=== PATIENT | male | born 1995 | race Caucasian/White ===

== ENCOUNTER 2017-10-16 17:18 | Inpatient (IN) | payer BC, OTHER ==
[~2017-10-16] VITALS: Ht 175.3 cm; Wt 63.5 kg
--- NOTE | 2017-10-16 18:30 | NUR ---
PRE-ADMISSION NOTE Received pt in intake. Pt is flushed and has a disheveled appearance, with a highly labile mood. Presents redness of the eyes, speaks very loudly, hyperactive and fidgety, has racing thoughts, anxiety, agitation, diaphoresis, tremulous, with constant movement of the body and inability to stay still. Pt was upset about not being unable to use his vape on unit and was trying to persuade staff. Pt is the primary source of info. Pt states NKA and no medical hx. Reports psych Hx of anxiety, depression, and bipolar. Pt states he has "anger issues." Pt reports having a hx of SZ, pt stated, "it happened during a blackout from taking benzos." Initial VS are BP: 125/66, HR: 102, RR: 20, O2sat: 96%. SUBSTANCE USE HX: 1. Heroin 0.75 mg daily by inhalation x 3 days. Last use was yesterday 10/15/17 at 0000. First used at age 19. 2. Meth 1.75 mg daily by inhalation/insufflation x 4 days. Last use was yesterday 10/15/17 at 0000. Firsrt used at age 14. 3. Suboxone 8 mg daily x 3 months. Last used today 10/16/17 at 1300 4 mg. Pt stated he did not use while on heroin.
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
[2017-10-16] MEDS ORDERED: ACETAMINOPHEN 325 MG TABLET PO PRN (19:00)
[2017-10-16] MEDS ORDERED: diphenhydrAMINE 50 MG CAPSULE PO PRN (19:00)
[2017-10-16] MEDS ORDERED: BUPRENORPHINE HCL 2 MG TAB.SUBL SL PRN (19:00)
[2017-10-16] MEDS ORDERED: ONDANSETRON ODT 4 MG TAB.RAPDIS SL PRN (19:00)
[2017-10-16] MEDS ORDERED: METHOCARBAMOL 750 MG TABLET PO PRN (19:00)
[2017-10-16] MEDS ORDERED: MIRALAX 17 GM POWD.PACK PO PRN (19:00)
[2017-10-16] MEDS ORDERED: LORAZEPAM 1 MG TABLET PO PRN (19:00)
[2017-10-16] MEDS ORDERED: LOPERAMIDE HCL 2 MG CAPSULE PO PRN ×2 (19:00)
[2017-10-16] MEDS ORDERED: MAGNESIUM HYDROXIDE 30 ML LIQUID UDC PO PRN (19:00)
[2017-10-16] MEDS ORDERED: IBUPROFEN 600 MG TABLET PO PRN (19:00)
[2017-10-16] MEDS ORDERED: 3 DAY TAPER BUPRENORPHINE -SERENITY PROTOCOL SL PRN (19:00)
[2017-10-16] MEDS ORDERED: DICYCLOMINE HCL 20 MG TABLET PO PRN (19:00)
[2017-10-16] MEDS ORDERED: ONDANSETRON 4 MG/2 ML VIAL IM PRN (19:00)
[2017-10-16] MEDS ORDERED: HYDROXYZINE PAMOATE 25 MG CAPSULE PO PRN (19:00)
[2017-10-16] MEDS ORDERED: CLONIDINE HCL 0.1 MG TABLET PO PRN (19:00)
[2017-10-16] MEDS ORDERED: MAG HYDROX/AL HYDROX/SIMETH 30 ML LIQUID UDC PO PRN (19:00)
--- NOTE | 2017-10-16 19:00 | NUR ---
MRSA SWAB, EKG, AND UDS REFUSED Pt refused ordered MRSA swab, EKG, and UDS. Pt stated, "You'll get your pee in the morning." Charge nurse was made aware of the situation. Safety measures in place. Call light within reach. Will continue to monitor.
[2017-10-16 19:07] LABS: BASOPHILS % (AUTO) 0.3 % (0.0-2.0); EOSINOPHILS # (AUTO) 0.2 K/uL (0.0-0.7); EOSINOPHILS % (AUTO) 1.4 % (0.0-7.0); HEMATOCRIT 47.8 % (36.7-47.1); HEMOGLOBIN 16.7 g/dL (12.5-16.3); LYMPHOCYTES # (AUTO) 4.1 K/uL (20.0-40.0); LYMPHOCYTES % (AUTO) 29.1 % (20.5-51.5); MEAN CORPUSCULAR HEMOGLOBIN 30.3 uug (23.8-33.4); MEAN CORPUSCULAR HGB CONC 35 g/dL (32.5-36.3); MEAN CORPUSCULAR VOLUME 86.7 fL (73.0-96.2); MONOCYTES # (AUTO) 1.4 K/uL (2.0-10.0); MONOCYTES % (AUTO) 9.8 % (0.0-11.0); NEUTROPHILS # (AUTO) 8.4 K/uL (1.8-8.9); NEUTROPHILS % (AUTO) 59.4 % (38.5-71.5); PLATELET COUNT (AUTO) 243 K/uL (152-348); RED BLOOD CELL COUNT(AUTO) 5.51 MIL/uL (4.06-5.63); WHITE BLOOD COUNT (AUTO) 14.1 K/uL (3.6-10.2)
[2017-10-16 19:35] LABS: ALANINE AMINOTRANSFERASE 113 U/L (16-63); ALKALINE PHOSPHATASE 81 U/L (50-136); ASPARTATE AMINOTRANSFERASE 152 U/L (15-37); BILIRUBIN,TOTAL 1.2 mg/dL (0.2-1.0); CARBON DIOXIDE 27 mmol/L (21-32); CHLORIDE 97 mmol/L (98-107); CREATININE 2.2 mg/dL (0.6-1.3); GLUCOSE 112 mg/dL (74-106); MAGNESIUM 2.5 mg/dL (1.8-2.4); POTASSIUM 4.2 mmol/L (3.5-5.1); TOTAL PROTEIN, SERUM 8.6 g/dL (6.4-8.2); UREA NITROGEN, BLOOD 47 mg/dL (7-18)
[2017-10-16 19:36] LABS: ETHANOL < 3 MG/DL (0-0)
[2017-10-16 20:00] VITALS: BP 125/66
--- NOTE | 2017-10-16 20:00 | NUR ---
COWS 11 Pt presents with anxiety, flushed skin, anxiety, agitation, restlessness, racing thoughts, and is fidgety. Pt is also easily distracted and impulsive.
[2017-10-17] VITALS: BP_SYST 109; BP_SYST 125; BP_DIAS 66; BP_DIAS 71
--- NOTE | 2017-10-17 | NUR ---
COWS 12 Pt presents with generalized body aches, anxiety, flushed skin, anxiety, agitation, restlessness, racing thoughts, and is fidgety.
--- NOTE | 2017-10-17 00:42 | NUR ---
PRN MOTRIN ADMINISTRATION Pt C/C of pain in his lower legs 10/05. Motrin 600mg was administered. Safety measures in place. Call light within reach. Will continue to monitor.
--- NOTE | 2017-10-17 01:42 | NUR ---
PRN MOTRIN REASSESSMENT Pt found in chair was eyes close, respirations even and unlabored. Medication noted effective. Safety measures in place. Call light within reach. Will continue to monitor.
--- NOTE | 2017-10-17 04:00 | NUR ---
WERO DEFERRED V/S REFUSED Pt was found in bed with eyes closed. Pt refused V/S and COWS assessment was unable to be carried out per order. Safety measures in place. Call light within reach. Will continue to monitor. Addendum: 10/17/17 at 0442 by PHIL TINOCO RN COWS DEFERRED*
--- NOTE | 2017-10-17 07:12 | NUR ---
END OF SHIFT Pt is a 21 y/o male admitted on 10/16/17 for opiate withdrawal. Pt also stated using meth and marijuana. Pt will start a 3 day Subutex taper today. Pt presented with anxiety, flushed skin, anxiety, agitation, restlessness, racing thoughts, and is fidgety. Pt is also easily distracted and impulsive. PRN Motrin was administered during the game artist. Pt has refused the initial UDS, EKG, and MRSA nasal swab. Last COWS 12. Pt slept 4 hours. Intake 828 ml, voided 0, stool 1. Pt's needs have been met. Endorsed to day shift nurse.
--- NOTE | 2017-10-17 07:20 | NUR ---
Start of Shift Note Pt. is a 21 y/o male newly admitted for the medically managed withdrawal from opiates (Heroin, and Suboxone). Pt. was also using meth daily concurrently with his opiate abuse. Pt. is scheduled to start a 3 day Subutex taper this morning. Endorse from previous shift pt. presented with anxiety, flushed skin, agitation, poor impulse control, restlessness and irritability. Pt. was given PRN Motrin during previous shift. Pt. refused UDS, EKG, and MRSA swab during time of admission. Last COW's of 12. Received pt. in room. Pt. in bed with eyes closed. Pt. presents as disheveled with linens falling off the bed and a cluttered personal space. Pt. arousable to touch but once woken up pt. became irritable. Pt. stated " You, guys are so un professional, why are you waking me up." Pt. educated on the need for a urine sample and a MRSA swab. Pt. grabbed the linens around him and covered himself including his head and refused to response. Pt. refused V/S at this time. Educated pt. on treatment plan and medication regiment. Pt. still refused to respond. Safety measures in place. Will continue to monitor pt.'s behavior for safety.
--- NOTE | 2017-10-17 08:00 | NUR ---
COWS Assessment COW's of 12. Pt. laying in bed and reports stomach cramps, and body aches. Pt. presents with flushed facial skin, restlessness and tangental thought patterns. upon approach pt. is irritable, paranoid, and labile. Pt. prompted to sign nursing education packets (Pt. did not sign during admission) to which pt. responded "I'm not signing shit, this is all a scam, you're charging my insurance hundreds of dollars if I sign that. I don't want to do anything leave me the fuck alone." Pt. educated as to the contents of the documents being signed and assured him they where educational in nature. Pt. still refused to sign. Pt. was prompted to provide a urine sample which he did not provide during admission pt. responded by saying "I peed in the middle of the night, I don't have to pee anymore please just leave me fuck alone. It's not my fault you guys didn't give me a cup at night." Educated pt. as to the necessity of a urine sample. Prompted pt. to allow this tag writer to swab his nares to check for MRSA because the pt. had recently been incarcerated. Pt. educated as the reasoning behind the swab and why he met criteria as to be swabbed. Pt. responded with " Fuck that, that's just another way for you guys get money, you guys are just trying to get money from my insurance, this is all just one big scam." Pt. educated once more, but still refused to comply with urine sample, MRSA swab and education packet signatures. aware. Will continue to monitor pt. for safety.
--- NOTE | 2017-10-17 08:00 | NUR ---
V/S Refusal Pt. laying in bed with the linens pulled above his head. Pt. refused V/S completely and states "I just want to be left alone, please jus leave me the fuck alone." Pt. educated on the treatment plan and the necessity of V/S but pt. still refused. Will attempt again when giving his morning medication regiment. Will continue to monitor pt.'s behavior for safety. Addendum: 10/17/17 at 1054 by DOUG PROCTOR RN Amended: Links added.
[2017-10-17] MEDS ORDERED: TUBERCULIN,PURIF.PROT.DERIV. 5 TU/0.1 ML TEST ID ONE (09:00)
[2017-10-17] MEDS ORDERED: MULTIVITAMINS,THERAPEUTIC TABLET PO SCH (09:00)
[2017-10-17] MEDS: BUPRENORPHINE HCL 2 MG TAB.SUBL SL SCH ×2 (10:08→21:02)
[2017-10-17 12:00] VITALS: BP 114/62
--- NOTE | 2017-10-17 12:00 | NUR ---
COW's Assessment COW's 10. Pt. reports stomach cramps and body aches and presents with tremors that can be felt not seen. Pt. is still irritable upon approach and state "Dude I already told you I feel like shit, leave me the fuck alone." Pt. still refuses to provide a urine sample, MRSA swab and to sign education packet. Pt. educated and encouraged to comply. Pt. still refused to cooperative. Will continue to monitor for safety.
--- NOTE | 2017-10-17 13:20 | NUR ---
Nursing Note Pt was called to the case finisher office to work on details of his discharge. The caser called the nurses station to report that pt became upset about discharge plans and stated "I feel like killing myself". He abruptly left the office and went back to his room. Upon assessing pt for SI he reports "no I don't have a plan to kill myself". He is very emotional, irritable, and restless. Dr. Schofield on the unit and made aware. Psychiatrist will be contacted.
--- NOTE | 2017-10-17 13:36 | NUR ---
Behavior Raw Products Director approaches pt's room after pt overheard yelling with no one else present. Raw Products Director encounters pt lying across his bed with hands covering face, pt states, " I hate life." Pt is labile, emotional, and dramatic. Pt is guarded and irritated with casualty underwriter as casualty underwriter approaches. Pt calms and allows casualty underwriter to assess for suicidal ideation, becomes agitated and states, " I am not suicidal, I don't wanna kill myself." Pt becomes increasingly agitated and requests casualty underwriter leave the room. Dr. Bhatt and Dr. Schofield on the unit and made aware.
--- NOTE | 2017-10-17 14:50 | NUR ---
Behavior Note Pt. in room thrashing about his bed. Pt. states " I don't want to be here anymore. I don't want to live. I don't want to live, I don't want to live." Pt. extremely anxious and irritable. Psych MD aware and already assess patient and a crisis team is on route to asses pt. for a psychiatric hold. Pt. educated on treatment planned and assured that the health care team would do their best to address his needs. To which patient stated, "I don't want leave, just let me stay." Informed patient that the doctors would do what was best for him and what he needed. Pt. stopped responding and just covered himself with his linens. Pt.'s 1:1 at beside. Safety measures in place will continue to monitor pt.'s behavior for safety.
--- NOTE | 2017-10-17 15:15 | NUR ---
Event Note Crisis team clinician assessed pt. at bedside, and found pt. met the criteria for a 5150 hold for DTS. Patients 1:1 is at bedside. Safety measures in place will continue to monitor pt.'s behavior for safety.
[2017-10-17 15:18] LABS: BASOPHILS % (AUTO) 0.7 % (0.0-2.0); EOSINOPHILS # (AUTO) 0.3 K/uL (0.0-0.7); EOSINOPHILS % (AUTO) 5.2 % (0.0-7.0); HEMATOCRIT 45.6 % (36.7-47.1); HEMOGLOBIN 15.8 g/dL (12.5-16.3); LYMPHOCYTES # (AUTO) 2.2 K/uL (20.0-40.0); LYMPHOCYTES % (AUTO) 32.7 % (20.5-51.5); MEAN CORPUSCULAR HEMOGLOBIN 30.8 uug (23.8-33.4); MEAN CORPUSCULAR HGB CONC 35 g/dL (32.5-36.3); MEAN CORPUSCULAR VOLUME 88.7 fL (73.0-96.2); MONOCYTES # (AUTO) 0.7 K/uL (2.0-10.0); MONOCYTES % (AUTO) 10.5 % (0.0-11.0); NEUTROPHILS # (AUTO) 3.4 K/uL (1.8-8.9); NEUTROPHILS % (AUTO) 50.9 % (38.5-71.5); PLATELET COUNT (AUTO) 192 K/uL (152-348); RED BLOOD CELL COUNT(AUTO) 5.14 MIL/uL (4.06-5.63); WHITE BLOOD COUNT (AUTO) 6.7 K/uL (3.6-10.2)
[2017-10-17 15:31] LABS: BILIRUBIN,TOTAL 0.9 mg/dL (0.2-1.0); MAGNESIUM 2.1 mg/dL (1.8-2.4); POTASSIUM 4.5 mmol/L (3.5-5.1); TOTAL PROTEIN, SERUM 7.5 g/dL (6.4-8.2)
[2017-10-17 16:00] VITALS: BP 111/61
--- NOTE | 2017-10-17 16:00 | NUR ---
COW's Assessment COW's 7. Pt. laying in bed and reports body aches and chills. Pt. presents with flushed facial skin. 1:1 sitter at beside. Safety measures in place. Will continue to monitor pt.'s behavior for safety.
--- NOTE | 2017-10-17 19:28 | NUR ---
End of Shift Note Pt. is a 21 y/o male newly admitted for the medically managed withdrawal from opiates (Heroin, and Suboxone). Pt. was also using meth daily concurrently with his opiate abuse. Pt. has been noncompliant with treatment throughout shift. Throughout shift pt. presented with anxiety, flushed skin, agitation, poor impulse control, restlessness and irritability. Pt. has been non compliant with UDS sample, MRSA nares, and education paper work signatures. While pt. was making a phone call with discharge planning pt. became irate and emotional and began to verbalize SI. This prompted pt. to be placed a 1:1 for safety. Pt. was assessed by lulu MALIK which led to a PET eval. Once the clinician from the crises team arrived and assessed the patient, patient was placed on a 5150 hold for DTS. (Hold initiated at 1515 10/17/2017). Lulu MALIK and aware and awaiting approval from an accepting facility to transfer pt. Last COW's of 7.Safety measures in place. 1:1 sitter at bedside. Will endorse pt.'s care to oncoming shift.
--- NOTE | 2017-10-17 19:29 | NUR ---
Start of shift note Received report from day shift nurse. Pt is a 21 yo male, A+Ox4, presenting to [facility] for medically supervised Opiate withdrawal. Pt is on 5150 psychiatric hold and 1:1 observation for safety. Pt noted to be agitated, irritable, angry, anxious, and restless. Pt has HX of anxiety, depression, bipolar disorder, and Hep C which will be monitored during shift. Pt is on 3 day Subutex taper, tolerated well. Respirations even and unlabored. Will continue to monitor.
[2017-10-17 20:14] VITALS: BP 107/64
--- NOTE | 2017-10-17 20:14 | NUR ---
COWS Assessment COWS: 10. Pt noted with anxiety, stuffy nose, severe diffuse discomfort, enlarged pupils, anger, depression, restlessness, and sweat on brow. Respirations even and unlabored. Will continue to monitor.
[2017-10-17] MEDS ORDERED: MULT-24 PO (21:06)
[2017-10-17] MEDS ORDERED: ONDA4VIA30 IM (21:06)
[2017-10-17] MEDS ORDERED: LOPE2CAP40 PO ×2 (21:06)
[2017-10-17] MEDS ORDERED: IBUP-1955 PO (21:06)
[2017-10-17] MEDS ORDERED: BUPR2TAB3 SL ×4 (21:06)
[2017-10-17] MEDS ORDERED: DIPH50CA37 PO (21:06)
[2017-10-17] MEDS ORDERED: DICY20TA28 PO (21:06)
[2017-10-17] MEDS ORDERED: HYDR-3895 PO (21:06)
[2017-10-17] MEDS ORDERED: ONDA4TAB11 SL (21:06)
[2017-10-17] MEDS ORDERED: ACET325T53 PO (21:06)
[2017-10-17] MEDS ORDERED: POLY17PO4 PO (21:06)
[2017-10-17] MEDS ORDERED: MAGN400O6 PO (21:06)
[2017-10-17] MEDS ORDERED: CLON0.1T14 PO (21:06)
[2017-10-17] MEDS ORDERED: METH-406 PO (21:06)
[2017-10-17] MEDS ORDERED: MAG30ORA PO (21:06)
--- NOTE | 2017-10-17 21:38 | NUR ---
NURSING NOTE Called [facility] for update of transfer. Was told that they are aware and transfer may happen after midnight.
--- NOTE | 2017-10-17 23:09 | NUR ---
Called med response, spoke with Cash and set up transfer. Approximate pickup time 90 minutes.
--- NOTE | 2017-10-17 23:10 | NUR ---
Received call from [facility]. Pt will be admitted to [facility] [address]. Addendum: 10/17/17 at 2337 by DENICE ERAZO RN ERROR IN TIME Received call from [facility] at [phone]
--- NOTE | 2017-10-17 23:24 | NUR ---
Gave report to James at [facility].
[2017-10-18 00:59] VITALS: BP 117/63
--- NOTE | 2017-10-18 00:59 | NUR ---
COWS Assessment COWS: 12. Pt noted with chills, sweat on brow, restlessness, enlarged pupils, stuffy nose, yawning, anxiety, piloerection, anger and depression. Respirations even and unlabored. Will continue to monitor.
--- NOTE | 2017-10-18 01:33 | NUR ---
Discharge note Pt is in stable condition, V/S WNL, skin is intact, and pt left facility on [facility] on 5150 hold being transferred to [facility] for further observation. Pt was discharged from [facility] on 10-18-17 @0883. All discharge paperwork signed and dated. Pt left the building with all of his belongings and prescriptions. notified.
[2017-10-18 08:05] LABS: HEPATITIS B SURFACE AG Negative (Negative)
[2017-10-18] MEDS ORDERED: BUPRENORPHINE HCL 2 MG TAB.SUBL SL SCH (09:00)
[2017-10-19] MEDS ORDERED: BUPRENORPHINE HCL 2 MG TAB.SUBL SL SCH (09:00)
== END 2017-10-18 01:33 | DRG 897 ==
LOC: SRC 18:08
PROVIDERS: ADMIT Family Medicine Addiction Medicine; ATTEND Family Medicine Addiction Medicine
PROC: HZ2ZZZZ Detoxification Services for Substance Abuse Treatment (ICD-10-PCS; principal; 2017-10-16)
DX: F11.23 Opioid dependence with withdrawal (principal); F31.5 Bipolar disorder, current episode depressed, severe, with psychotic features; E86.0 Dehydration; F41.9 Anxiety disorder, unspecified; F15.23 Other stimulant dependence with withdrawal; Z79.899 Other long term (current) drug therapy; Z59.0 Homelessness; Z91.19 Patient's noncompliance with other medical treatment and regimen; F17.210 Nicotine dependence, cigarettes, uncomplicated; R79.89 Other specified abnormal findings of blood chemistry
CPT/HCPCS: 36415; 83735; 85025; 86592; 86705; 86803; 87340; 87806; A4663; G0480

== ENCOUNTER 2019-09-04 21:39 | Emergency (ER) | payer BC, MEDICAID, OTHER ==
[~2019-09-04] VITALS: Ht 177.8 cm; Wt 72.6 kg
--- NOTE | 2019-09-04 21:55 | NUR ---
Dr. Felipe at bedside for MSE.
--- NOTE | 2019-09-04 22:03 | NUR ---
Pt rapidly stormed out of ER when MD started to explain his CURES report/drug use to him. Tried to explain the discharge procedures to patient, but patient did not want to be discharged properly and eloped without signing DC form.
== END 2019-09-04 22:09 | disposition left against medical advice (07) ==
LOC: ER 21:48
DX: F41.9 Anxiety disorder, unspecified (principal); L03.114 Cellulitis of left upper limb
CPT/HCPCS: A4663